=== PATIENT | male | born 1960 ===

== ENCOUNTER 2017-12-08 15:23 | Emergency (ER) | payer OTHER ==
[2017-12-08 15:40] VITALS: RESP 18
--- NOTE | 2017-12-08 15:41 | ED PDOC ---
Arrival/HPI - General Historian: Patient - History of Present Illness Narrative History of Present Illness (Text): 12/08/17 16:22 57 yo male w/PMhx of TIA, HTN come in for evaluation of rectal bleeding developed 4 days ago. pt reports, " see bright red blood with every BM in water and on stool". Pts ts, has 203 BM daily, reg. patter and consistency. Otherwise, pt denies recent illness or abx use, denies fever, chills, CP, SOB, dyspnea, abd. pain, N/V/D, back pain, UTI sx. Last colonoscopy was more than 5 yrs ago, normal. Denies recent abd. surgery. Pt admits, stopped Plavix 4 days ago. <Mikayla Silverio - Last Filed: 12/08/17 20:23> <Ed Hawk - Last Filed: 12/09/17 07:26> - General Chief Complaint: GI Problem Time Seen by Provider: 12/08/17 15:40 Past Medical History - Provider Review Nursing Documentation Reviewed: Yes - Travel History Have you recently traveled outside [place] w/in the past 3 mons?: No - Cardiac Hx Cardiac Disorders: Yes Hx Hypotension: Yes - Pulmonary Hx Respiratory Disorders: No - Neurological Hx Neurological Disorder: No - HEENT Hx HEENT Disorder: No - Renal Hx Renal Disorder: No - Endocrine/Metabolic Hx Endocrine Disorders: No - Hematological/Oncological Hx Blood Disorders: No - Integumentary Hx Dermatological Disorder: No - Musculoskeletal/Rheumatological Hx Musculoskeletal Disorders: No - Gastrointestinal Hx Gastrointestinal Disorders: No - Genitourinary/Gynecological Hx Genitourinary Disorders: No - Psychiatric Hx Psychophysiologic Disorder: No Hx Substance Use: No - Anesthesia Hx Anesthesia: No <Mikayla Silverio - Last Filed: 12/08/17 20:23> Family/Social History - Physician Review Nursing Documentation Reviewed: Yes Family/Social History: No Known Family HX Smoking Status: Never Smoked Hx Alcohol Use: No Hx Substance Use: No <Mikayla Silverio - Last Filed: 12/08/17 20:23> Allergies/Home Meds <Mikayal Silverio - Last Filed: 12/08/17 20:23> <Ed Hawk - Last Filed: 12/09/17 07:26> Allergies/Adverse Reactions: Allergies No Known Allergies Allergy (Verified 12/08/17 15:41) Home Medications: Home Meds Medication Instructions Recorded Confirmed Clopidogrel [Plavix] 75 mg PO DAILY 12/08/17 12/08/17 RX: Losartan [Cozaar] 50 mg PO DAILY 12/08/17 12/08/17 RX: amLODIPine [Norvasc] 5 mg PO DAILY 12/08/17 12/08/17 Review of Systems - Review of Systems Constitutional: Normal Eyes: Normal ENT: Normal Respiratory: Normal Cardiovascular: Normal Gastrointestinal: Other (rectal bleeding). absent: Abdominal Pain, Stool Changes, Constipation, Diarrhea, Nausea, Vomiting, Appetite Changes, Hematemesis, Food Intolerance Genitourinary Male: Normal Musculoskeletal: Normal Skin: Normal Neurological: Normal Endocrine: Normal Hemo/Lymphatic: Normal Psychiatric: Normal <Mikayla Silverio - Last Filed: 12/08/17 20:23> Physical Exam Vital Signs Temp Pulse Resp BP Pulse Ox 12/08/17 15:33 98.4 F 79 18 142/83 96 Temperature: Afebrile Blood Pressure: Normal Pulse: Regular Respiratory Rate: Normal Appearance: Positive for: Well-Appearing, Non-Toxic, Comfortable Pain Distress: None Mental Status: Positive for: Alert and Oriented X 3 - Systems Exam Conjunctiva: Present: Normal Mouth: Present: Moist Mucous Membranes, Normal Lips. No: Drooling Neck: Present: Normal Range of Motion, Trachea Midline. No: MIDLINE TENDERNESS, JVD, Bruit Respiratory/Chest: Present: Clear to Auscultation, Good Air Exchange. No: Respiratory Distress, Accessory Muscle Use, Wheezes Cardiovascular: Present: Regular Rate and Rhythm, Normal S1, S2. No: Murmurs Abdomen: No: Tenderness, Distention, Peritoneal Signs, Rebound, Guarding Rectal: Present: Gross Blood, Normal Rectal Tone. No: Rectal Tenderness, Fissures Upper Extremity: Present: Normal Inspection Lower Extremity: Present: Normal Inspection. No: Edema, CALF TENDERNESS Neurological: Present: GCS=15, Speech Normal, Normal Sensory Function, Norm Deep Tendon Reflexes Skin: Present: Warm, Dry, Normal Color. No: Rashes Psychiatric: Present: Alert, Oriented x 3, Normal Insight, Normal Concentration <Mikayla Silverio - Last Filed: 12/08/17 20:23> Vital Signs Temp Pulse Resp BP Pulse Ox 12/08/17 22:00 98.6 F 82 18 137/82 99 12/08/17 15:33 98.4 F 79 18 142/83 96 <Ed Hawk - Last Filed: 12/09/17 07:26> Medical Decision Making ED Course and Treatment: 12/08/17 20:24 Pt was OBS in ED for 4 hours and remained stable, asymptomatic. Abd: benign, (-) guarding, (-) rebound Blood work review and appears without acute abnormalities, no evidence of anemia, dehydration. Discussed with and care turn over. Pending CT A/P w/PO+IV contrast, re-eval, dispo - Lab Interpretations I have reviewed the lab results: Yes Interpretation: No clinic. lab abnormalty <Mikayla Silverio - Last Filed: 12/08/17 20:23> - Lab Interpretations Lab Results: 12/08/17 17:15 12/08/17 17:15 Lab Results 12/08/17 17:15: Sodium 136, Potassium 3.8, Chloride 100, Carbon Dioxide 25, Anion Gap 14, BUN 13, Creatinine 0.8, Est GFR ( Amer) > 60, Est GFR (Non- Af Amer) > 60, Random Glucose 111 H, Calcium 8.7, Total Bilirubin 0.6, AST 29, ALT 33, Alkaline Phosphatase 77, Total Protein 7.4, Albumin 4.1, Globulin 3.3, Albumin/Globulin Ratio 1.2, Amylase 63, Lipase 78 12/08/17 17:15: PT 10.5, INR 0.92, APTT 29.5 12/08/17 17:15: WBC 4.9, RBC 4.26, Hgb 13.1 L, Hct 37.7 L, MCV 88.5, MCH 30.8, MCHC 34.7, RDW 12.8, Plt Count 208, MPV 8.2, Gran % 40.9 L, Lymph % (Auto) 43.5 H, [place] % (Auto) 13.4 H, Eos % (Auto) 1.6, Baso % (Auto) 0.6, Gran # 2.01, Lymph # (Auto) 2.1, [place] # (Auto) 0.7 H, Eos # (Auto) 0.1, Baso # (Auto) 0.03 - RAD Interpretation Radiology Orders: 12/08/17 16:20 ABD PELVIS PO & IV CONTRAST [CT] Stat - Medication Orders Current Medication Orders: Discontinued Medications Sodium Chloride (Sodium Chloride 0.9%) 1,000 mls @ 999 mls/hr IV .Q1H1M STA Stop: 12/08/17 17:21 Last Admin: 12/08/17 17:00 Dose: 999 mls/hr eMAR Start Stop Document 12/08/17 17:00 HI (Rec: 12/08/17 19:54 HI [id number]) Intravenous Solution Start Date 12/08/17 Start Time 17:00 <Ed Hawk - Last Filed: 12/09/17 07:26> - PA / HAND ROLLER / Resident Statement / has reviewed & agrees with the documentation as recorded. <Ed Hawk - Last Filed: 12/09/17 07:26> Disposition/Present on Arrival - Present on Arrival Any Indicators Present on Arrival: No History of DVT/PE: No History of Uncontrolled Diabetes: No Urinary Catheter: No History of Decub. Ulcer: No History Surgical Site Infection Following: None - Disposition Have Diagnosis and Disposition been Completed?: No Disposition Time: 20:26 <Mikayla Silverio - Last Filed: 12/08/17 20:23> <Ed Hawk - Last Filed: 12/09/17 07:26> - Disposition Diagnosis: Rectal bleeding Disposition: HOME/ ROUTINE Condition: STABLE Discharge Instructions (ExitCare): Gastrointestinal Bleeding Additional Instructions: Return for any new or worsening symptoms especially lightheadedness, worsening bleeding. Follow up with your mental health case manager as soon as possible. ARTURO DELEON, thank you for letting us take care of you today. Your provider was Erlin Richmond MD and you were treated for rectal bleeding. The emergency medical care you received today was directed at your acute symptoms. If you were prescribed any medication, please fill it and take as directed. It may take several days for your symptoms to resolve. Return to the Emergency Department if your symptoms worsen, do not improve, or if you have any other problems. Please contact your doctor or call one of the physicians/clinics you have been referred to that are listed on the Patient Visit Information form that is included in your discharge packet. Bring any paperwork you were given at discharge with you along with any medications you are taking to your follow up visit. Our treatment cannot replace ongoing medical care by a primary care provider outside of the emergency department. Thank you for allowing the [facility] team to be part of your care today. If you had an X-Ray or CT scan: A Radiologist will review the ED reading if any change in treatment is needed we will contact you. If you had a blood, urine, or wound culture: It will take several days for the results, if any change in treatment is needed we will contact you. If you had an STI test: It will take 48 hours for the results. Please call after 1 week if you have not heard back. Referrals: Rox Cabrera V, DO [Primary Care Provider] - Follow up with primary Forms: [employer] (Burmese), WORK NOTE Physician Patient Turnover - . Patient Signed Over To: Erlin Richmond Handoff Comments: CT A/P, re-eval, dispo <Mikayla Silverio - Last Filed: 12/08/17 20:23>
[2017-12-08] MEDS ORDERED: Sodium Chloride 0.9% 1,000 ML IV STA (16:21)
[2017-12-08 17:23] LABS: BASO # 0.03 K/mm3 (0.0-2.0); BASO % 0.6 % (0.0-3.0); EOS # 0.1 (0.0-0.7); EOS % 1.6 % (1.5-5.0); GRAN # 2.01 (1.4-6.5); GRAN % 40.9 % (50.0-68.0); HEMOGLOBIN 13.1 g/dL (14.0-18.0); LYMPH # 2.1 (1.2-3.4); LYMPH % 43.5 % (22.0-35.0); MEAN CELL VOLUME 88.5 fl (80.0-105.0); MEAN CORPUSCULAR HEMOGLOBIN 30.8 pg (25.0-35.0); MEAN CORPUSCULAR HGB CONC 34.7 g/dl (31.0-37.0); MEAN PLATELET VOLUME 8.2 fl (7.0-11.0); MONO # 0.7 (0.1-0.6); MONO % 13.4 % (1.0-6.0); RBC 4.26 10^6/uL (3.5-6.1); RED CELL DISTRIBUTION WIDTH 12.8 % (11.5-14.5); WHITE BLOOD COUNT 4.9 10^3/ul (4.5-11.0)
[2017-12-08 17:28] LABS: INR 0.92; PARTIAL THROMBOPLASTIN TIME 29.5 Seconds (25.1-36.5); PROTHROMBIN TIME 10.5 SECONDS (9.4-12.5)
[2017-12-08] MEDS ORDERED: Iohexol 240 (50 ml) ONE (17:31)
[2017-12-08 17:32] LABS: ALB/GLOB RATIO 1.2 (1.1-1.8); ALBUMIN 4.1 g/dL (3.0-4.8); ALT/SGPT 33 U/L (7-56); AMYLASE 63 U/L (35-125); AST/SGOT 29 U/L (17-59); BLOOD UREA NITROGEN 13 mg/dL (7-21); CALCIUM 8.7 mg/dL (8.4-10.5); GFR NON-AFRICAN AMERICAN > 60; LIPASE 78 U/L (23-300)
[2017-12-08] MEDS ORDERED: Iohexol 350 MG/100 ML VIAL ONE (19:39)
--- NOTE | 2017-12-08 21:48 | ED PDOC ---
Physical Exam Vital Signs Temp Pulse Resp BP Pulse Ox 12/08/17 15:33 98.4 F 79 18 142/83 96 Medical Decision Making ED Course and Treatment: 12/08/17 21:47 patient seen for rectal bleeding. case discussed with nathan lucas and the plan is to discharge pending negative CT. patient and examined at bedside, patient offers no physical complaints, patient tells me that he only sees the blood with bowel movement and that he has an upcoming colonoscopy on Dec 28. patient remained stable throughout ED course ands table for discharge. 12/08/17 21:52 - Lab Interpretations Lab Results: 12/08/17 17:15 12/08/17 17:15 Lab Results 12/08/17 17:15: Sodium 136, Potassium 3.8, Chloride 100, Carbon Dioxide 25, Anion Gap 14, BUN 13, Creatinine 0.8, Est GFR ( Amer) > 60, Est GFR (Non- Af Amer) > 60, Random Glucose 111 H, Calcium 8.7, Total Bilirubin 0.6, AST 29, ALT 33, Alkaline Phosphatase 77, Total Protein 7.4, Albumin 4.1, Globulin 3.3, Albumin/Globulin Ratio 1.2, Amylase 63, Lipase 78 12/08/17 17:15: PT 10.5, INR 0.92, APTT 29.5 12/08/17 17:15: WBC 4.9, RBC 4.26, Hgb 13.1 L, Hct 37.7 L, MCV 88.5, MCH 30.8, MCHC 34.7, RDW 12.8, Plt Count 208, MPV 8.2, Gran % 40.9 L, Lymph % (Auto) 43.5 H, [place] % (Auto) 13.4 H, Eos % (Auto) 1.6, Baso % (Auto) 0.6, Gran # 2.01, Lymph # (Auto) 2.1, [place] # (Auto) 0.7 H, Eos # (Auto) 0.1, Baso # (Auto) 0.03 - RAD Interpretation Narrative RAD Interpretations (Text): 12/08/17 21:[address] with Oral and IV Contrast: Dictator: Dr.Mark Ly IMPRESSION: No suspicious mass or lymphadenopathy or fluid collection indentified within the abdomen or pelvis. Liver spleen and pancreas appear normal. Moderate amount of fecal materal in the right side of the colon. Kidneys show no mass or obstruction. Prostate gland mildly enlarged and mild bladder wall thickening. Close clinical correlation is advised. Radiology Orders: 12/08/17 16:20 ABD PELVIS PO & IV CONTRAST [CT] Stat [employer] Mechanical Engineer: Radiologist - Medication Orders Current Medication Orders: Discontinued Medications Sodium Chloride (Sodium Chloride 0.9%) 1,000 mls @ 999 mls/hr IV .Q1H1M STA Stop: 12/08/17 17:21 Last Admin: 12/08/17 17:00 Dose: 999 mls/hr eMAR Start Stop Document 12/08/17 17:00 HI (Rec: 12/08/17 19:54 HI [id number]) Intravenous Solution Start Date 12/08/17 Start Time 17:00 Disposition/Present on Arrival - Present on Arrival Any Indicators Present on Arrival: No History of DVT/PE: No History of Uncontrolled Diabetes: No Urinary Catheter: No History of Decub. Ulcer: No History Surgical Site Infection Following: None - Disposition Have Diagnosis and Disposition been Completed?: Yes Diagnosis: Rectal bleeding Disposition Time: 21:53 Patient Plan: Discharge Patient Problems: Current Active Problems Problem Status Onset Rectal bleeding Acute Condition: STABLE Discharge Instructions (ExitCare): Gastrointestinal Bleeding Additional Instructions: Return for any new or worsening symptoms especially lightheadedness, worsening bleeding. Follow up with your wrecker operator as soon as possible. ARTURO DELEON, thank you for letting us take care of you today. Your provider was Erlin Richmond MD and you were treated for rectal bleeding. The emergency medical care you received today was directed at your acute symptoms. If you were prescribed any medication, please fill it and take as directed. It may take several days for your symptoms to resolve. Return to the Emergency Department if your symptoms worsen, do not improve, or if you have any other problems. Please contact your doctor or call one of the physicians/clinics you have been referred to that are listed on the Patient Visit Information form that is incl uded in your discharge packet. Bring any paperwork you were given at discharge with you along with any medications you are taking to your follow up visit. Our treatment cannot replace ongoing medical care by a primary care provider outside of the emergency department. Thank you for allowing the [facility] team to be part of your care today. If you had an X-Ray or CT scan: A Radiologist will review the ED reading if any change in treatment is needed we will contact you. If you had a blood, urine, or wound culture: It will take several days for the results, if any change in treatment is needed we will contact you. If you had an STI test: It will take 48 hours for the results. Please call after 1 week if you have not heard back. Referrals: Rox Cabrera V, [Primary Care Provider] - Follow up with primary Forms: [employer] (Malay), WORK NOTE
[2017-12-08 23:12] VITALS: BP 137/82; PULSE 82; TEMP 98.6; O2SAT 99
--- NOTE | 2017-12-09 08:25 | CT ---
Date of service: 12/08/2017 PROCEDURE: CT Abdomen and Pelvis with contrast HISTORY: rectal bleeding, LLQ pain COMPARISON: None. TECHNIQUE: Following oral and intravenous contrast administration, a CT examination of the abdomen and pelvis performed from the domes of the diaphragms to the symphysis pubis with reformatted datasets provided not only axial but also sagittal and coronal series. Coronal and sagittal reformats were generated. contrast dose: Omnipaque 350, 95 cc Radiation dose: Total exam DLP = 775.87 mGy-cm. This CT exam was performed using one or more of the following dose reduction techniques: Automated exposure control, adjustment of the mA and/or kV according to patient size, and/or use of iterative reconstruction technique. FINDINGS: LOWER THORAX: Cardiomegaly. No pleural pericardial effusion. Small hiatal hernia. Nonspecific ground-glass opacity scattered at the bilateral lung bases with minimal dependent atelectasis bilaterally. 3.5 mm nodule right middle lobe base (see image 8 series 5). LIVER: Unremarkable. No gross lesion or ductal dilatation. GALLBLADDER AND BILE DUCTS: Unremarkable. PANCREAS: Unremarkable. No gross lesion or ductal dilatation. SPLEEN: Unremarkable. ADRENALS: Unremarkable. No mass. KIDNEYS AND URETERS: Unremarkable. No hydronephrosis. No solid mass. VASCULATURE: Unremarkable. No aortic aneurysm. BOWEL: Relatively prominent retained fecal material seen throughout the majority colon the rectal fecal impaction is not apparent. Clinically correlate for potential constipation. Oral contrast throughout small bowel appears unremarkable with a minimal amount at the ascending colon. Large bowel is therefore poorly evaluated. Etiology of rectal bleeding is unclear. No pericolic rectal reactive changes are identified or fluid collection. Stomach is collapsed not well evaluated. APPENDIX: Normal appendix. PERITONEUM: Unremarkable. No free fluid. No free air. LYMPH NODES: Unremarkable. No enlarged lymph nodes. BLADDER: Unremarkable. REPRODUCTIVE: Mild prostate enlargement identified. BONES: Multilevel thoracolumbar spondylosis identified. No definite fracture or destructive bony lesion appreciable. OTHER FINDINGS: None. IMPRESSION: 1. No definite acute abdominal or pelvic findings. 2. Potential constipation. 3. Mildly enlarged prostate gland. Concordant preliminary report from [facility], 12/08/2017.
== END 2017-12-08 22:00 | disposition home or self-care (01) ==
LOC: ED 15:23 → EDBD 15:23 → ED 22:00
DX: K62.5 Hemorrhage of anus and rectum (principal); I10 Essential (primary) hypertension; Z86.73 Personal history of transient ischemic attack (TIA), and cerebral infarction without residual deficits
CPT/HCPCS: 74177; 80053; 82150; 83690; 85025; 85610; 85730; 99284; J7030; Q9966; Q9967